=== PATIENT | male | born 1955 | race Caucasian/White ===

== ENCOUNTER 2022-08-26 16:17 | Emergency (ER) | payer OTHER ==
[~2022-08-26] VITALS: Ht 165.1 cm; Wt 75.0 kg
[2022-08-26 16:24] VITALS: BP 184/111
== END 2022-08-26 17:57 | disposition home or self-care (01) ==
LOC: ER 16:17
DX: I10 Essential (primary) hypertension (principal)
CPT/HCPCS: 99281